=== PATIENT | male | born 1995 | race American Indian/Alaskan Native ===

== ENCOUNTER 2018-04-03 09:11 | Emergency (ER) | payer OTHER ==
[2018-04-03 09:23] VITALS: BP 120/77
--- NOTE | 2018-04-03 10:54 | Emergency Department Report ---
ED Palpitations HPI - General Chief Complaint: Arrhythmia/Palpitations Stated Complaint: HEART PALPITATIONS Time Seen by Provider: 04/03/18 10:38 Source: patient Mode of arrival: Ambulatory Limitations: No Limitations - History of Present Illness Initial Comments: Patient is a 23-year-old male who states that for the past 2 days he's feeling chest discomfort. Patient states that he's feeling of lump in his chest that occurs every 10-1520 minutes. Patient states it comes and goes very quickly. Patient states "it feels as though more heart drops very quickly and then it resolves". The patient denies any shortness of breath nausea vomiting diarrhea or persistent chest pain. Patient states that he does smoke marijuana but denies any other drug use or alcohol use. Patient states he does not use high amounts of caffeine. - Related Data Home Medications Medication Instructions Recorded Confirmed Last Taken No Known Home Medications [No 08/05/15 08/05/15 Unknown Reported Home Medications] Allergies Allergy/AdvReac Type Severity Reaction Status Date / Time No Known Allergies Allergy Verified 08/05/15 04:17 ED Review of Systems ROS: Stated complaint: HEART PALPITATIONS Other details as noted in HPI Comment: All other systems reviewed and negative ED Past Medical Hx - Past Medical History Previous Medical History?: Yes Hx GERD: Yes Additional medical history: severe constipation - Surgical History Past Surgical History?: No - Social History Smoking Status: Current Every Day Smoker Substance Use Type: Alcohol, Marijuana - Medications Home Medications: Home Medications Medication Instructions Recorded Confirmed Last Taken Type No Known Home Medications [No 08/05/15 08/05/15 Unknown History Reported Home Medications] ED Physical Exam - General Limitations: No Limitations General appearance: alert, in no apparent distress - Head Head exam: Present: atraumatic, normocephalic - Eye Eye exam: Present: normal appearance - ENT ENT exam: Present: mucous membranes moist - Neck Neck exam: Present: normal inspection - Respiratory Respiratory exam: Present: normal lung sounds bilaterally. Absent: respiratory distress - Cardiovascular Cardiovascular Exam: Present: regular rate, normal rhythm. Absent: systolic murmur, diastolic murmur, rubs, gallop - GI/Abdominal GI/Abdominal exam: Present: soft, normal bowel sounds - Rectal Rectal exam: Present: deferred - Extremities Exam Extremities exam: Present: normal inspection - Back Exam Back exam: Present: normal inspection - Neurological Exam Neurological exam: Present: alert, oriented X3 - Psychiatric Psychiatric exam: Present: normal affect, normal mood - Skin Skin exam: Present: warm, dry, intact, normal color. Absent: rash ED Course Vital Signs 04/03/18 09:19 Temperature 98.6 F Pulse Rate 52 L Respiratory 20 Rate Blood Pressure 120/77 O2 Sat by Pulse 99 Oximetry ED Medical Decision Making - EKG Data -: EKG Interpreted by [place] EKG shows normal: sinus rhythm, axis, intervals, QRS complexes, ST-T waves Rate: normal - EKG Data Interpretation: normal EKG - Radiology Data Chest x-ray shows no acute process - Medical Decision Making Patient will be discharged home at this time. Patient will have follow-up with cardiology for possible echo. Patient is told that he needs to refrain from extracurricular drug use alcohol. Critical care attestation.: If time is entered above; I have spent that time in minutes in the direct care of this critically ill patient, excluding procedure time. ED Disposition Clinical Impression: PVC (premature ventricular contraction) Disposition: DC-01 TO HOME OR SELFCARE Is pt being admited?: No Does the pt Need Aspirin: No Condition: Stable Instructions: Palpitations (ED), Premature Ventricular Contractions (ED) Referrals: KIRK LOPEZ MD [Staff Physician] - 3-5 Days
--- NOTE | 2018-04-03 11:40 | XRay Report ---
ROUTINE CHEST, TWO VIEWS: HISTORY: Chest discomfort. The trachea, heart, mediastinal contour, lung al and bony thorax are unremarkable. IMPRESSION: Unremarkable chest x-ray.
== END 2018-04-03 12:21 | disposition home or self-care (01) ==
LOC: ED 09:11
DX: I49.3 Ventricular premature depolarization (principal); K21.9 Gastro-esophageal reflux disease without esophagitis; K59.00 Constipation, unspecified; F17.200 Nicotine dependence, unspecified, uncomplicated; F12.10 Cannabis abuse, uncomplicated
CPT/HCPCS: 71046; 93005; 93010; 99284

== ENCOUNTER 2018-04-07 16:06 | Emergency (ER) | payer OTHER ==
[2018-04-07 16:14] VITALS: BP 110/61
[2018-04-07 17:00] LABS: Basophils # (Auto) 0.1 K/mm3 (0.0-0.1); Basophils % (Auto) 1.3 % (0.0-1.8); Eosinophils % (Auto) 0.9 % (0.0-4.3); Hematocrit 42.7 % (35.5-45.6); Hemoglobin 14.3 gm/dl (11.8-15.2); Lymphocytes # (Auto) 1.7 K/mm3 (1.2-5.4); Lymphocytes % (Auto) 40.6 % (13.4-35.0); Mean Corpuscular HGB Conc 34 % (32-34); Mean Corpuscular Hemoglobin 29 pg (28-32); Mean Corpuscular Volume 85 fl (84-94); Monocytes # (Auto) 0.5 K/mm3 (0.0-0.8); Monocytes % (Auto) 12.7 % (0.0-7.3); Red Blood Count 5.03 M/mm3 (3.65-5.03); Red Cell Distribution Width 13.7 % (13.2-15.2)
[2018-04-07 17:05] LABS: Bilirubin,Urine NEG (Negative); Blood,Urine NEG (Negative); Color,Urine Yellow (Yellow); Mucus,Urine FEW /HPF; Protein,Urine <15 mg/dL mg/dL (Negative); Urobilinogen,Urine < 2.0 mg/dL (<2.0)
[2018-04-07 17:06] LABS: RBC,Urine < 1.0 /HPF (0.0-6.0)
[2018-04-07 17:19] LABS: Alanine Aminotransferase 11 units/L (7-56); Albumin 4.3 g/dL (3.9-5); BUN/Creatinine Ratio 15; Blood Urea Nitrogen 12 mg/dL (9-20); Calcium 8.9 mg/dL (8.4-10.2); Hemolysis Index 26
[2018-04-07 17:35] LABS: Platelet Count 172 K/mm3 (140-440)
== END 2018-04-07 21:48 | disposition left against medical advice (07) ==
LOC: ED 16:06
DX: R10.9 Unspecified abdominal pain (principal); Z53.21 Procedure and treatment not carried out due to patient leaving prior to being seen by health care provider
CPT/HCPCS: 36415; 80053; 81001; 85025

== ENCOUNTER 2019-07-25 03:01 | Emergency (ER) | payer SELFPAY | END 2019-07-25 04:26 | disposition home or self-care (01) | LOC: ED 03:01 | DX: R30.9 Painful micturition, unspecified (principal); K21.9 Gastro-esophageal reflux disease without esophagitis ==

== ENCOUNTER 2019-07-25 05:03 | Emergency (ER) | payer SELFPAY ==
[2019-07-25 05:08] VITALS: BP 133/92
--- NOTE | 2019-07-25 06:27 | Emergency Department Report ---
ED Male HPI - General Chief complaint: Urogenital-Male Stated complaint: PENILE SWELLING/PAINFUL Time Seen by Provider: 07/25/19 06:20 Source: patient Mode of arrival: Ambulatory Limitations: No Limitations - History of Present Illness Initial comments: 24-year-old [facility] emergency department for repeat check on his penile swelling. He was seen earlier today and had a few more questions are returned. He reports no penile discharge. No dysuria, no hematuria, no hematemesis, no diarrhea no constipation, no abdominal pain noted testicular pain, no testicular swelling. He has not yet filled the medication and reports continued to swell -: Gradual, days(s) Location: penis Quality: dull Consistency: constant Improves with: none Worsens with: none denies: rash, urinary retention, fever, nausea/vomiting, incontinence - Related Data Previous Rx's Medication Instructions Recorded Last Taken Type Azithromycin [Zithromax Z-TANA] 250 mg PO QDAY #6 tablet 09/24/18 Unknown Rx Benzonatate [Tessalon Perle] 100 mg PO Q8H #15 capsule 09/24/18 Unknown Rx Clotrimazole/Betamethasone Dip 1 applicatio TP BID #30 cream..g. 07/25/19 Unknown Rx [Lotrisone Cream] Allergies Allergy/AdvReac Type Severity Reaction Status Date / Time No Known Allergies Allergy Verified 08/05/15 04:17 ED Review of Systems ROS: Stated complaint: PENILE SWELLING/PAINFUL Other details as noted in HPI Comment: All other systems reviewed and negative ED Past Medical Hx - Past Medical History Previous Medical History?: Yes Hx GERD: Yes Additional medical history: severe constipation - Surgical History Past Surgical History?: No - Social History Smoking Status: Current Every Day Smoker Substance Use Type: None - Medications Home Medications: Home Medications Medication Instructions Recorded Confirmed Last Taken Type Azithromycin [Zithromax Z-TANA] 250 mg PO QDAY #6 tablet 09/24/18 Unknown Rx Benzonatate [Tessalon Perle] 100 mg PO Q8H #15 capsule 09/24/18 Unknown Rx Clotrimazole/Betamethasone Dip 1 applicatio TP BID #30 cream..g. 07/25/19 Unknown Rx [Lotrisone Cream] ED Physical Exam - General Limitations: No Limitations General appearance: alert, in no apparent distress - Head Head exam: Present: atraumatic, normocephalic - Eye Eye exam: Present: normal appearance - ENT ENT exam: Present: mucous membranes moist - Neck Neck exam: Present: normal inspection - Respiratory Respiratory exam: Absent: respiratory distress - Cardiovascular Cardiovascular Exam: Present: regular rate, normal rhythm. Absent: systolic murmur, diastolic murmur, rubs, gallop - GI/Abdominal GI/Abdominal exam: Present: soft, normal bowel sounds. Absent: tenderness - Rectal Rectal exam: Present: deferred - exam: Absent: scrotal swelling, circumcision (no paraphimosis or phimosis present. There is some swelling to the foreskin. No broken skin. No penile lesions. No rash. No lymphadenopathy) - Extremities Exam Extremities exam: Present: normal inspection - Back Exam Back exam: Present: normal inspection - Neurological Exam Neurological exam: Present: alert, oriented X3 - Psychiatric Psychiatric exam: Present: normal affect, normal mood - Skin Skin exam: Present: warm, dry, intact, normal color. Absent: rash ED Course Vital Signs 07/25/19 05:06 Temperature 98.3 F Pulse Rate 53 L Respiratory 18 Rate Blood Pressure 133/92 O2 Sat by Pulse 99 Oximetry ED Medical Decision Making - Medical Decision Making ` Uncircumcised swelling noted. No discharge. Minimal discomfort. No lymphadenopathy discussed with Mr. Neal in great detail the use utilization of the medication and on the need to follow-up for recheck in one week. Does not actual abscess process present Critical care attestation.: If time is entered above; I have spent that time in minutes in the direct care of this critically ill patient, excluding procedure time. ED Disposition Clinical Impression: Posthitis Disposition: DC-01 TO HOME OR SELFCARE Is pt being admited?: No Does the pt Need Aspirin: No Condition: Stable Referrals: PRIMARY CARE, [Primary Care Provider] - 3-5 Days
== END 2019-07-25 06:24 | disposition home or self-care (01) ==
LOC: ED 05:03
DX: N47.7 Other inflammatory diseases of prepuce (principal); K21.9 Gastro-esophageal reflux disease without esophagitis; K59.00 Constipation, unspecified; F17.200 Nicotine dependence, unspecified, uncomplicated; Z79.899 Other long term (current) drug therapy

== ENCOUNTER 2020-01-24 02:56 | Emergency (ER) | payer OTHER ==
[2020-01-24 03:02] VITALS: BP 122/77
--- NOTE | 2020-01-24 04:26 | Emergency Department Report ---
Vomiting/Diarrhea - HPI Chief Complaint: Abdominal Pain Stated Complaint: POSSIBLE FOOD POISONING/STOMACH PAIN Time Seen by Provider: 01/24/20 03:40 Duration: 2 Days Severity: moderate Nausea/Vomiting Severity: Moderate Diarrhea Severity: Mild Pain Location: Generalized Pain Severity: Mild Symptoms: Yes Able to Tolerate Fluids, No Watery Diarrhea, No Bloody diarrhea, No Fever, No Recent Unusual Foods, No Recent Untreated Water, No Recent use of Antibiotics, No Family w/ Similar Symptoms, No Contacts w/ Similar Symptoms, No Rash, No Hematuria, No Recent URI Symptoms Other History: This is a 24-year-old male that presents to the emergency room with nausea, vomiting, diarrhea, and abdominal cramping for 2 days. Patient states symptoms initially started with intermittent diffuse abdominal cramping and then progressed to nausea and vomiting on yesterday. Patient states vomiting started after eating some [employer]. He is concerned of possible food poisoning. Past medical history of GERD. Patient denies recent travel. He denies tarry stools, urinary frequency, urgency, dysuria, back pain, fever, or chills. ED Review of Systems ROS: Stated complaint: POSSIBLE FOOD POISONING/STOMACH PAIN Other details as noted in HPI Constitutional: denies: chills, fever Respiratory: denies: cough, shortness of breath, wheezing Cardiovascular: denies: chest pain, palpitations Gastrointestinal: abdominal pain, nausea, vomiting. denies: diarrhea, constipation, hematemesis, melena, hematochezia Genitourinary: denies: urgency, dysuria Musculoskeletal: denies: back pain, joint swelling, arthralgia Skin: denies: rash, lesions Neurological: denies: headache, weakness, paresthesias Psychiatric: denies: anxiety, depression ED Past Medical Hx - Past Medical History Previous Medical History?: Yes Hx GERD: Yes Additional medical history: severe constipation - Surgical History Past Surgical History?: No - Social History Smoking Status: Current Every Day Smoker Substance Use Type: Marijuana - Medications Home Medications: Home Medications Medication Instructions Recorded Confirmed Last Taken Type Azithromycin [Zithromax Z-TANA] 250 mg PO QDAY #6 tablet 09/24/18 Unknown Rx Benzonatate [Tessalon Perle] 100 mg PO Q8H #15 capsule 09/24/18 Unknown Rx Clotrimazole/Betamethasone Dip 1 applicatio TP BID #30 cream..g. 07/25/19 Unkn own Rx [Lotrisone Cream] Ondansetron [Zofran Odt] 4 mg PO Q8HR PRN #20 tab.grupodis 01/24/20 Unknown Rx Vomiting Diarrhea Exam - Exam General: Vital signs noted. No distress. Alert and acting appropriately. HEENT: Yes Pharyngeal Erythema (Erythematous posterior pharynx, uvula midline), Yes Moist Mucous Membranes, No Pharyngeal Exudates, No Rhinorrhea, No Conjuctival Injection, No Frontal Tenderness, No Maxillary Tenderness Neck: No Adenopathy, No Rigidity Lungs: Yes Clear Lung Sounds, Yes Good Air Exchange, No Wheezes, No Stridor, No Cough, No Nasal Flaring, No Retractions, No Use of Accessory Muscles Heart exam: Regular: Yes, Murmur: No, Tachycardia: No Abdomen: Tenderness: No, Peritoneal Signs: No, Distention: No, Hyperactive Bowel sounds: No Skin exam: Rash: No, Edema: No, Normal turgor: Yes Neurologic: Alert and oriented, no deficits. Musculoskeletal: Unremarkable. ED Course Vital Signs 01/24/20 02:59 Temperature 98.1 F Pulse Rate 77 Respiratory 18 Rate Blood Pressure 122/77 O2 Sat by Pulse 97 Oximetry ED Medical Decision Making - Lab Data Result diagrams: 01/24/20 04:40 01/24/20 04:40 Lab Results 01/24/20 01/24/20 01/24/20 Range/Units 04:35 04:40 04:40 WBC 8.3 (4.5-11.0) K/mm3 RBC 5.61 H (3.65-5.03) M/mm3 Hgb 16.4 H (11.8-15.2) gm/dl Hct 47.8 H (35.5-45.6) % MCV 85 (84-94) fl MCH 29 (28-32) pg MCHC 34 (32-34) % RDW 13.6 (13.2-15.2) % Plt Count 175 (140-440) K/mm3 Lymph % (Auto) 4.4 L (13.4-35.0) % [place] % (Auto) 7.8 H (0.0-7.3) % Eos % (Auto) 0.3 (0.0-4.3) % Baso % (Auto) 0.3 (0.0-1.8) % Lymph # 0.4 L (1.2-5.4) K/mm3 [place] # 0.6 (0.0-0.8) K/mm3 Eos # 0.0 (0.0-0.4) K/mm3 Baso # 0.0 (0.0-0.1) K/mm3 Seg Neutrophils % 87.2 H (40.0-70.0) % Seg Neutrophils # 7.2 (1.8-7.7) K/mm3 Sodium 142 (137-145) mmol/L Potassium 4.2 (3.6-5.0) mmol/L Chloride 102.2 (98-107) mmol/L Carbon Dioxide 26 (22-30) mmol/L Anion Gap 18 mmol/L BUN 12 (9-20) mg/dL Creatinine 0.9 (0.8-1.5) mg/dL Estimated GFR > 60 ml/min BUN/Creatinine Ratio 13 % Glucose 113 H (75-100) mg/dL Calcium 9.5 (8.4-10.2) mg/dL Total Bilirubin 0.50 (0.1-1.2) mg/dL AST 23 (5-40) units/L ALT 15 (7-56) units/L Alkaline Phosphatase 88 (35-129) units/L Total Protein 8.0 (6.3-8.2) g/dL Albumin 4.7 (3.9-5) g/dL Albumin/Globulin Ratio 1.4 % Urine Color Yellow (Yellow) Urine Turbidity Clear (Clear) Urine pH 6.0 (5.0-7.0) Ur Specific [place] 1.016 (1.003-1.030) Urine Protein <15 mg/dl (Negative) mg/dL Urine Glucose (UA) Neg (Negative) mg/dL Urine Ketones 20 (Negative) mg/dL Urine Blood Neg (Negative) Urine Nitrite Neg (Negative) Urine Bilirubin Neg (Negative) Urine Urobilinogen < 2.0 (<2.0) mg/dL Ur Leukocyte Esterase Neg (Negative) Urine WBC (Auto) 1.0 (0.0-6.0) /HPF Urine RBC (Auto) 2.0 (0.0-6.0) /HPF Urine Mucus Few /HPF - Medical Decision Making This is a 24-year-old male that presents with nausea, vomiting, and diarrhea for 2 days. Past medical history of GERD. Vitals stable. Obtained CMP, CBC, & UA. Mild dehydration. Abdominal exam without peritoneal signs. Currently no signs of dehydration. No signs of surgical abdomen other acute medical emergencies including bowel obstruction, appendicitis, and acute cholecystitis. Patient's presentation is not consistent with any other acute emergent causes of vomiting and diarrhea. Imaging deferred at this time. Given IV fluids and Pepcid. Symptoms are susceptible of gastroenteritis. Start Zofran. Discussed plan with patient and agreed to plan. No further questions noted by the patient. Discha rged home in stable condition. Follow up with PCP in 2-3 days. Critical care attestation.: If time is entered above; I have spent that time in minutes in the direct care of this critically ill patient, excluding procedure time. ED Disposition Clinical Impression: Nausea, vomiting, and diarrhea, Gastroenteritis, Dehydration, mild Disposition: DC-01 TO HOME OR SELFCARE Is pt being admited?: No Condition: Stable Instructions: Acute Nausea and Vomiting (ED), Gastroenteritis (ED) Additional Instructions: Frequent hand washing is important to reduce spread. Prompt disinfection of contaminated surfaces with household chlorine bleach- based aba therapist and washing of soiled clothing and bedding should be advised. If food or water is thought to be contaminated, it should be avoided. Start taking [id number] Imodium for diarrhea as directed on the box. Increase fluid intake. Drinks high in sugars such as carbonated soft drinks, fruit juice, and highly sugared liquids should be avoided. Prescriptions: Ondansetron [Zofran Odt] 4 mg PO Q8HR PRN #20 tab.rapdis PRN Reason: Nausea And Vomiting Referrals: [facility] [Outside] - 3-5 Days [facility] [Outside] - 3-5 Days [facility] [Outside] - 3-5 Days Forms: Work/School Release Form(ED), Accompanied Note Time of Disposition: 05:31
[2020-01-24 04:42] LABS: Bilirubin,Urine NEG (Negative); Blood,Urine NEG (Negative); Color,Urine Yellow (Yellow); Mucus,Urine FEW /HPF; Protein,Urine <15 mg/dL mg/dL (Negative); Urobilinogen,Urine < 2.0 mg/dL (<2.0)
[2020-01-24 04:55] LABS: Basophils % (Auto) 0.3 % (0.0-1.8); Eosinophils % (Auto) 0.3 % (0.0-4.3); Hematocrit 47.8 % (35.5-45.6); Hemoglobin 16.4 gm/dl (11.8-15.2); Lymphocytes # (Auto) 0.4 K/mm3 (1.2-5.4); Lymphocytes % (Auto) 4.4 % (13.4-35.0); Mean Corpuscular HGB Conc 34 % (32-34); Mean Corpuscular Volume 85 fl (84-94); Monocytes # (Auto) 0.6 K/mm3 (0.0-0.8); Monocytes % (Auto) 7.8 % (0.0-7.3); Platelet Count 175 K/mm3 (140-440); Red Blood Count 5.61 M/mm3 (3.65-5.03); Red Cell Distribution Width 13.6 % (13.2-15.2)
[2020-01-24] MEDS ORDERED: SODIUM CHLORIDE 0.9% 1000 ML 1,000 ML IV ONE (04:56)
[2020-01-24] MEDS ORDERED: FAMOTIDINE 20 MG/2 ML INJ IV ONE (04:56)
[2020-01-24 05:18] LABS: Alanine Aminotransferase 15 units/L (7-56); Albumin 4.7 g/dL (3.9-5); BUN/Creatinine Ratio 13; Blood Urea Nitrogen 12 mg/dL (9-20); Calcium 9.5 mg/dL (8.4-10.2); Hemolysis Index 3
== END 2020-01-24 05:45 | disposition home or self-care (01) ==
LOC: ED 02:56
DX: K52.9 Noninfective gastroenteritis and colitis, unspecified (principal); E86.0 Dehydration; R11.2 Nausea with vomiting, unspecified; K21.9 Gastro-esophageal reflux disease without esophagitis; F17.200 Nicotine dependence, unspecified, uncomplicated; F12.90 Cannabis use, unspecified, uncomplicated; Z79.899 Other long term (current) drug therapy
CPT/HCPCS: 36415; 80053; 81001; 85025; 96361; 96374; 99283; J7030

== ENCOUNTER 2021-07-05 13:02 | Emergency (ER) | payer SELFPAY ==
[2021-07-05 13:29] VITALS: BP 138/80
--- NOTE | 2021-07-05 14:18 | XRay Report ---
CHEST 2 VIEWS INDICATION / CLINICAL INFORMATION: Chest Pain. COMPARISON: Chest x-ray 11/24/2018 FINDINGS: SUPPORT DEVICES: None. HEART / MEDIASTINUM: No significant abnormality. LUNGS / PLEURA: No significant pulmonary or pleural abnormality. No pneumothorax. ADDITIONAL FINDINGS: No significant additional findings. IMPRESSION: 1. No acute findings. Signer Name: Len Maki MD Signed: 07/05/2021 2:14 PM Workstation Name: [id number]
[2021-07-05 14:27] LABS: Basophils % (Auto) 0.6 % (0.0-1.8); Eosinophils % (Auto) 0.7 % (0.0-4.3); Hematocrit 44.9 % (35.5-45.6); Hemoglobin 15.7 gm/dl (11.8-15.2); Lymphocytes # (Auto) 1.8 K/mm3 (1.2-5.4); Lymphocytes % (Auto) 29.3 % (13.4-35.0); Mean Corpuscular HGB Conc 35 % (32-34); Mean Corpuscular Volume 86 fl (84-94); Monocytes # (Auto) 0.8 K/mm3 (0.0-0.8); Monocytes % (Auto) 12.7 % (0.0-7.3); Platelet Count 189 K/mm3 (140-440); Red Blood Count 5.19 M/mm3 (3.65-5.03); Red Cell Distribution Width 13.6 % (13.2-15.2)
[2021-07-05 14:37] LABS: INR 0.97 (0.87-1.13)
[2021-07-05 14:38] LABS: Partial Thromboplastin Time 30.3 Sec. (24.2-36.6)
[2021-07-05 14:48] LABS: Alanine Aminotransferase 19 units/L (7-56); Albumin 4.6 g/dL (3.9-5); BUN/Creatinine Ratio 12; Blood Urea Nitrogen 11 mg/dL (9-20); Calcium 9.4 mg/dL (8.4-10.2); Hemolysis Index 25
--- NOTE | 2021-07-05 16:22 | Emergency Department Report ---
ED Palpitations HPI - General Chief Complaint: Arrhythmia/Palpitations Stated Complaint: HEART PALPATATIONS Time Seen by Provider: 07/05/21 13:38 Source: patient Mode of arrival: Ambulatory Limitations: No Limitations - History of Present Illness Initial Comments: This is a 26-year-old male nontoxic, well nourished in appearance, no acute signs of distress presents to the ED with c/o of intermittent " heart fluttering sensation" times several days. Patient otherwise denies any chest pain. Patient currently denies any symptoms. Patient denies any upper respiratory symptoms. Patient denies any shortness of breath, hemoptysis, fever, chills, nausea, vomiting, headache, stiff neck, numbness, tingling, abdominal pain. Patient denies pleuritic chest pain. Patient denies any recent travels or long car rides. Patient denies any recent surgeries or any sick contacts. Patient denies any drug allergies or significant past medical history. Denies drinking any alcohol, drug consumption or energy drinks. Patient stated symptoms occurs during anxiety episodes. MD Complaint: irregular heart beat -: days(s) Associated Symptoms: denies other symptoms. denies: chest pain, shortness of breath, syncope, near-syncope, nausea/vomiting, anxiety, diaphoresis, cough, parasthesias, feeling of impending doom, muscle cramps - Related Data Previous Rx's Medication Instructions Recorded Last Taken Type Azithromycin [Zithromax Z-TANA] 250 mg PO QDAY #6 tablet 09/24/18 Unknown Rx Benzonatate [Tessalon Perle] 100 mg PO Q8H #15 capsule 09/24/18 Unknown Rx Clotrimazole/Betamethasone Dip 1 applicatio TP BID #30 cream..g. 07/25/19 Unknown Rx [Lotrisone Cream] Ondansetron [Zofran Odt] 4 mg PO Q8HR PRN #20 tab.rapdis 01/24/20 Unknown Rx Allergies Allergy/AdvReac Type Severity Reaction Status Date / Time No Known Allergies Allergy Verified 08/05/15 04:17 ED Review of Systems ROS: Stated complaint: HEART PALPATATIONS Other details as noted in HPI Comment: All other systems reviewed and negative Constitutional: denies: chills, fever Eyes: denies: eye pain, eye discharge, vision change ENT: denies: ear pain, throat pain Respiratory: denies: cough, shortness of breath, wheezing Cardiovascular: denies: chest pain, palpitations, dyspnea on exertion, orthopnea, edema, syncope, paroxysmal nocturnal dyspnea Endocrine: no symptoms reported Gastrointestinal: denies: abdominal pain, nausea, diarrhea Genitourinary: denies: urgency, dysuria Musculoskeletal: denies: back pain, joint swelling, arthralgia Skin: denies: rash, lesions Neurological: denies: headache, weakness, paresthesias Psychiatric: denies: anxiety, depression Hematological/Lymphatic: denies: easy bleeding, easy bruising ED Past Medical Hx - Past Medical History Previous Medical History?: Yes Hx GERD: Yes Additional medical history: severe constipation - Social History Smoking Status: Current Every Day Smoker Substance Use Type: Marijuana - Medications Home Medications: Home Medications Medication Instructions Recorded Confirmed Last Taken Type Azithromycin [Zithromax Z-TANA] 250 mg PO QDAY #6 tablet 09/24/18 Unknown Rx Benzonatate [Tessalon Perle] 100 mg PO Q8H #15 capsule 09/24/18 Unknown Rx Clotrimazole/Betamethasone Dip 1 applicatio TP BID #30 cream..g. 07/25/19 Unknown Rx [Lotrisone Cream] Ondansetron [Zofran Odt] 4 mg PO Q8HR PRN #20 tab.rapdis 01/24/20 Unknown Rx ED Physical Exam - General Limitations: No Limitations General appearance: alert, in no apparent distress - Head Head exam: Present: atraumatic, normocephalic - Eye Eye exam: Present: normal appearance - Neck Neck exam: Present: normal inspection, full ROM. Absent: lymphadenopathy - Respiratory Respiratory exam: Present: normal lung sounds bilaterally. Absent: respiratory distress, wheezes, rales, rhonchi, stridor, chest wall tenderness, accessory muscle use, decreased breath sounds, prolonged expiratory - Cardiovascular Cardiovascular Exam: Present: regular rate, normal rhythm, normal heart sounds. Absent: bradycardia, tachycardia, irregular rhythm, systolic murmur, diastolic murmur, rubs, gallop - GI/Abdominal GI/Abdominal exam: Present: soft, normal bowel sounds. Absent: distended, tenderness, guarding, rebound, rigid, diminished bowel sounds - Extremities Exam Extremities exam: Present: normal inspection, full ROM - Back Exam Back exam: Present: normal inspection, full ROM. Absent: tenderness, CVA tenderness (R), CVA tenderness (L), muscle spasm, paraspinal tenderness, vertebral tenderness, rash noted - Neurological Exam Neurological exam: Present: alert, oriented X3, normal gait - Psychiatric Psychiatric exam: Present: normal affect, normal mood - Skin Skin exam: Present: warm, dry, intact, normal color. Absent: rash ED Course Vital Signs 07/05/21 13:28 Temperature 98 F Pulse Rate 61 Respiratory 16 Rate Blood Pressure 138/80 [Right] O2 Sat by Pulse 100 Oximetry - Reevaluation(s) Reevaluation #1: 07/05/21 16:27 Patient is speaking in full sentences with no signs of distress noted. ED Medical Decision Making - Lab Data Result diagrams: 07/05/21 13:41 07/05/21 13:41 Lab Results 07/05/21 07/05/21 07/05/21 Range/Units 13:41 13:41 13:41 WBC 6.0 (4.5-11.0) K/mm3 RBC 5.19 H (3.65-5.03) M/mm3 Hgb 15.7 H (11.8-15.2) gm/dl Hct 44.9 (35.5-45.6) % MCV 86 (84-94) fl MCH 30 (28-32) pg MCHC 35 H (32-34) % RDW 13.6 (13.2-15.2) % Plt Count 189 (140-440) K/mm3 Lymph % (Auto) 29.3 (13.4-35.0) % [place] % (Auto) 12.7 H (0.0-7.3) % Eos % (Auto) 0.7 (0.0-4.3) % Baso % (Auto) 0.6 (0.0-1.8) % Lymph # (Auto) 1.8 (1.2-5.4) K/mm3 [place] # (Auto) 0.8 (0.0-0.8) K/mm3 Eos # (Auto) 0.0 (0.0-0.4) K/mm3 Baso # (Auto) 0.0 (0.0-0.1) K/mm3 Seg Neutrophils % 56.7 (40.0-70.0) % Seg Neutrophils # 3.4 (1.8-7.7) K/mm3 PT 13.4 (12.2-14.9) Sec. INR 0.97 (0.87-1.13) APTT 30.3 (24.2-36.6) Sec. Sodium 138 (137-145) mmol/L Potassium 4.0 (3.6-5.0) mmol/L Chloride 99.6 (98-107) mmol/L Carbon Dioxide 28 (22-30) mmol/L Anion Gap 14 mmol/L BUN 11 (9-20) mg/dL Creatinine 0.9 (0.8-1.3) mg/dL Estimated GFR > 60 ml/min BUN/Creatinine Ratio 12 % Glucose 88 (75-100) mg/dL Calcium 9.4 (8.4-10.2) mg/dL Magnesium 1.80 (1.7-2.3) mg/dL Total Bilirubin 0.60 (0.1-1.2) mg/dL AST 26 (5-40) units/L ALT 19 (7-56) units/L Alkaline Phosphatase 99 (35-129) units/L Troponin T < 0.010 (0.00-0.029) ng/mL Total Protein 7.9 (6.3-8.2) g/dL Albumin 4.6 (3.9-5) g/dL Albumin/Globulin Ratio 1.4 % - Radiology Data [facility] [address] [place] [address] XRay Report Signed Patient: LINNEA WEEKS MR#: [id number] : 1995 Acct:[id number] Age/Sex: 26 / M ADM Date: 07/05/21 Loc: ED Attending Dr: Ordering Physician: ROD MARCUM NP Date of Service: 07/05/21 Procedure(s): XR chest routine 2V Accession Number(s): [id number] cc: ROD MARCUM NP Fluoro Time In Minutes: CHEST 2 VIEWS INDICATION / CLINICAL INFORMATION: Chest Pain. COMPARISON: Chest x-ray 11/24/2018 FINDINGS: SUPPORT DEVICES: None. HEART / MEDIASTINUM: No significant abnormality. LUNGS / PLEURA: No significant pulmonary or pleural abnormality. No pneumothorax. ADDITIONAL FINDINGS: No significant additional findings. IMPRESSION: 1. No acute findings. Signer Name: Len Maki MD Signed: 07/05/2021 2:14 PM Workstation Name: [id number] Transcribed By: TL Dictated By: Len Maki MD Electronically Authenticated By: Len Maki MD Signed Date/Time: 07/05/211413 DD/ 13 TD/TT: - Medical Decision Making 26-year-old male that presents with cardiac fluttering sensation. Patient is stable and was examined by me. Labs has been obtained. Imaging has been obtained. Initial EKG has been reviewed within normal limits. A repeat troponin and EKG is pending but patient was not in the waiting room after being called several times. As per Zenia RN, try to reach patient at a phone number listed but patient did not answer. Patient left AGAINST MEDICAL ADVICE without telling anybody. I was not able to reassess the patient, perform a full physical assessment, and repeat diagnostic testing for further evaluation and treatment. Critical care attestation.: If time is entered above; I have spent that time in minutes in the direct care of this critically ill patient, excluding procedure time. ED Disposition Clinical Impression: Fluttering sensation of heart Disposition: DC-07 LEFT AGAINST MED ADVICE Is pt being admited?: No Condition: Undetermined
--- NOTE | 2021-07-06 14:31 | Electrocardiograph Report ---
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
== END 2021-07-05 15:41 | disposition left against medical advice (07) ==
LOC: ED 13:02
DX: I49.8 Other specified cardiac arrhythmias (principal); K21.9 Gastro-esophageal reflux disease without esophagitis; F17.200 Nicotine dependence, unspecified, uncomplicated; F12.10 Cannabis abuse, uncomplicated
CPT/HCPCS: 36415; 71046; 80053; 83735; 84484; 85025; 85610; 85730; 93005; 99283

== ENCOUNTER 2021-07-05 17:32 | Emergency (ER) | payer SELFPAY ==
[2021-07-05 22:34] VITALS: BP 153/94
--- NOTE | 2021-07-05 22:45 | Emergency Department Report ---
ED General Adult HPI - General Chief complaint: Arrhythmia/Palpitations Stated complaint: HEART PALPATATIONS Time Seen by Provider: 07/05/21 22:26 Source: patient Mode of arrival: Ambulatory Limitations: No Limitations - History of Present Illness Initial comments: 26-year-old male patient presents to the emergency department with complaints of palpitations for 2 days. Patient states he feels "his heart racing hard about every 30 seconds." No history of similar symptoms. No recent changes in patient's caffeine/sugar intake. Patient endorses marijuana use. No cocaine use or other illicit drugs. No prescription drug abuse reported. No history of similar symptoms. No family history of cardiac arrhythmia or sudden cardiac . Denies fever, chills, chest pain, shortness of breath, syncope, dizziness, lightheadedness, weakness, lower extremity pain/swelling. Denies all other complaints at this time. - Related Data Previous Rx's Medication Instructions Recorded Last Taken Type Azithromycin [Zithromax Z-TANA] 250 mg PO QDAY #6 tablet 09/24/18 Unknown Rx Benzonatate [Tessalon Perle] 100 mg PO Q8H #15 capsule 09/24/18 Unknown Rx Clotrimazole/Betamethasone Dip 1 applicatio TP BID #30 cream..g. 07/25/19 Unknown Rx [Lotrisone Cream] Ondansetron [Zofran Odt] 4 mg PO Q8HR PRN #20 tab.rapdis 01/24/20 Unknown Rx propranoloL [Inderal] 10 mg PO BID 10 Days tablet 07/05/21 Unknown Rx Allergies Allergy/AdvReac Type Severity Reaction Status Date / Time No Known Allergies Allergy Verified 08/05/15 04:17 ED Review of Systems ROS: Stated complaint: HEART PALPATATIONS Other details as noted in HPI Other: GENERAL: Negative for fever, chills, weight change, anorexia, fatigue. ENT: Negative for ear pain, difficulty hearing, sore throat, nasal congestion, epistaxis. CARDIOVASCULAR: Positive for palpitations. PULMONARY: Negative for cough, dyspnea, wheezing, orthopnea, cyanosis. GASTROINTESTINAL: Negative for abdominal pain, nausea, vomiting, diarrhea, constipation. MUSCULOSKELETAL: Negative for joint pain, joint swelling, myalgias, back pain, neck pain. NEUROLOGICAL: Negative for headache, seizure, syncope, paresthesias, weakness. INTEGUMENTARY: Negative for erythema, rash, diaphoresis, laceration, ecchymosis. HEMATOLOGICAL: Negative for hemoptysis, hematemesis, hematochezia, hematuria. PSYCHIATRIC: Negative for hallucinations, suicidal ideation, homicidal ideation, anxiety, depression. ED Past Medical Hx - Past Medical History Previous Medical History?: No Hx GERD: Yes Additional medical history: severe constipation - Surgical History Past Surgical History?: No - Social History Smoking Status: Current Every Day Smoker Substance Use Type: Marijuana - Medications Home Medications: Home Medications Medication Instructions Recorded Confirmed Last Taken Type Azithromycin [Zithromax Z-TANA] 250 mg PO QDAY #6 tablet 09/24/18 Unknown Rx Benzonatate [Tessalon Perle] 100 mg PO Q8H #15 capsule 09/24/18 Unknown Rx Clotrimazole/Betamethasone Dip 1 applicatio TP BID #30 cream..g. 07/25/19 Unknown Rx [Lotrisone Cream] Ondansetron [Zofran Odt] 4 mg PO Q8HR PRN #20 tab.rapdis 01/24/20 Unknown Rx propranoloL [Inderal] 10 mg PO BID 10 Days tablet 07/05/21 Unknown Rx ED Physical Exam - General Limitations: No Limitations - Other Other exam information: General: Awake and alert. No acute distress. Head: Atraumatic, normocephalic. Eyes: EOMI. Pupils are equal and round. Normal sclera and conjunctiva. ENT: Oral mucosa is moist. Normal pharyngeal exam. Neck: Supple. No lymphadenopathy. Pulmonary: No respiratory distress. Clear to auscultation bilaterally. Cardiac: Regular rate and rhythm. Pulses are palpable and equal bilaterally. No lower extremity cyanosis or edema. Skin: Warm and dry. No rashes. Abdomen: Soft, non-tender, non-protuberant. No guarding, rigidity, or rebound. Bowel sounds are normal. No organomegaly or masses noted. Back: Normal alignment. No CVA tenderness. Extremities: Symmetrical. Full range of motion intact. Neurological: Alert and oriented, appropriately interactive, no focal deficits. Psych: Cooperative. Appropriate mood and affect. Speech is evenly metered. Thoughts are logically construed. ED Course Vital Signs 07/05/21 07/05/21 22:33 22:50 Temperature 98.7 F Pulse Rate 68 65 Respiratory 16 17 Rate Blood Pressure 153/94 [Left] O2 Sat by Pulse 100 99 Oximetry ED Medical Decision Making - EKG Data 07/05/21 22:42 EKG shows normal sinus rhythm with a ventricular rate of 62 bpm. Normal axis. Normal SD interval. Normal QT interval. Multiple PVCs. No ST segment changes. Over read by attending emergency physician, who agrees with this interpretation. - Medical Decision Making Differential diagnosis including but not limited to: acute coronary syndrome, cardiac arrhythmia, pericarditis, pericardial effusion/cardiac tamponade, pulmonary embolism, toxic ingestion, valvular disease, myocarditis Patient presented to the emergency department earlier today for evaluation of palpitations. He underwent EKG, chest x-ray, and laboratory evaluation. Sunny llanes reportedly eloped from the emergency department prior to receiving his results. By the time he returned to the emergency department, the record from his patient encounter had already been signed, and he was instructed to check in a second time to receive his results from the first visit. Please review earlier ED documentation from 07/05/21 for further details. On repeat evaluation, patient states his symptoms are unchanged. An EKG was repeated, which showed multiple PVCs. Remainder of diagnostic work-up from earlier visit within normal limits. No clinical indication for repeat diagnostic work-up in the absence of worsening symptoms and/or evolution of symptoms. Patient will be started on a low-dose of Propanolol and referred to beverage sales consultant for close outpatient follow- up. Emphasized the importance of refraining from consumption of caffeine, sugar, energy drinks, etc. until otherwise instructed by beverage sales consultant. Patient has also been advised to refrain from sports and strenuous physical activity until otherwise instructed by beverage sales consultant. Patient expressed understanding and is agreeable to plan of care. Marijuana cessation discussed. Strict return precautions provided. Repeat exam is unremarkable and benign. History, exam, diagnostic testing, and current condition do not suggest worrisome pathology to warrant further testing, continued ED treatment, admission, or surgical evaluation at this point. Given the low probability of a significant medical illness, it would be more likely to result in harm than benefit to perform further testing at this stage. Discussed findings, presumptive diagnosis, need for follow-up and specific signs/symptoms that should prompt immediate return to the emergency department. Instructions were explained in detail to the patient in addition to giving written discharge information. Patient expressed understanding and was given the opportunity to ask questions, all of which were satisfactorily answered prior to discharge home. Critical care attestation.: If time is entered above; I have spent that time in minutes in the direct care of this critically ill patient, excluding procedure time. ED Disposition Clinical Impression: PVCs (premature ventricular contractions) Disposition: TO HOME OR SELFCARE Is pt being admited?: No Does the pt Need Aspirin: No Condition: Stable Instructions: Premature Ventricular Contraction Additional Instructions: Take Propanolol as directed. Reduce your dietary caffeine/sugar intake. Stay well-hydrated. Please refrain from using illicit drugs, including marijuana. Follow-up with beverage sales consultant this week. Call tomorrow to schedule an appointment. See referral information below. Please refrain from participating in sports/strenuous physical activity until otherwise instructed by beverage sales consultant. Return to the emergency department immediately for new or worsening symptoms. Specifically, return to the emergency department immediately for chest pain, difficulty breathing, worsening palpitations, loss of consciousness, dizziness, lightheadedness, or any other concerns. Prescriptions: propranoloL [Inderal] 10 mg PO BID 10 Days tablet Referrals: MARICARMEN MURRAY MD [Staff Physician] - 3-5 Days [facility] [Provider Group] - 3-5 Days Time of Disposition: 22:45
--- NOTE | 2021-07-06 14:33 | Electrocardiograph Report ---
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
== END 2021-07-05 22:50 | disposition home or self-care (01) ==
LOC: ED 17:32
DX: I49.3 Ventricular premature depolarization (principal); K21.9 Gastro-esophageal reflux disease without esophagitis; F17.200 Nicotine dependence, unspecified, uncomplicated; F12.10 Cannabis abuse, uncomplicated
CPT/HCPCS: 93005; 99282

== ENCOUNTER 2021-07-26 10:22 | Emergency (ER) | payer OTHER ==
[2021-07-26 10:43] VITALS: BP 148/82
--- NOTE | 2021-07-26 11:30 | XRay Report ---
CHEST 2 VIEWS INDICATION / CLINICAL INFORMATION: heart arrhythmia. COMPARISON: 07/05/21 FINDINGS: SUPPORT DEVICES: None. HEART / MEDIASTINUM: No significant abnormality. LUNGS / PLEURA: No significant pulmonary or pleural abnormality. No pneumothorax. ADDITIONAL FINDINGS: No significant additional findings. IMPRESSION: 1. No acute findings. No change. Signer Name: Adriano Schneider MD Signed: 07/26/2021 11:26 AM Workstation Name: [id number]
--- NOTE | 2021-07-26 12:06 | Emergency Department Report ---
ED General Adult HPI - General Chief complaint: Arrhythmia/Palpitations Stated complaint: PVCS/SOB/FATIQUE Source: patient Mode of arrival: Ambulatory Limitations: No Limitations - History of Present Illness Initial comments: 26-year-old -[place] male presents to the emergency room complaining of shortness of breath and fatigue for the last 2 days. Patient was seen here for 2 weeks ago for heart palpitations and was diagnosed with PVCs and placed on a beta-kajal. Patient reports he never followed up with a oncology admin. Patient denies any chest pain no shortness of breath at this time. Patient states he completed the propanolol that was given to him on 07/05/2021. Onset/Timin -: days(s) Consistency: intermittent Improves with: none Worsens with: none Associated Symptoms: shortness of breath (Intermittent). denies: chest pain, cough, diaphoresis, fever/chills, loss of appetite, nausea/vomiting, weakness Treatments Prior to Arrival: none - Related Data Previous Rx's Medication Instructions Recorded Last Taken Type Azithromycin [Zithromax Z-TANA] 250 mg PO QDAY #6 tablet 09/24/18 Unknown Rx Benzonatate [Tessalon Perle] 100 mg PO Q8H #15 capsule 09/24/18 Unknown Rx Clotrimazole/Betamethasone Dip 1 applicatio TP BID #30 cream..g. 07/25/19 Unknown Rx [Lotrisone Cream] Ondansetron [Zofran Odt] 4 mg PO Q8HR PRN #20 tab.rapdis 01/24/20 Unknown Rx propranoloL [Inderal] 10 mg PO BID 10 Days tablet 07/05/21 Unknown Rx Allergies Allergy/AdvReac Type Severity Reaction Status Date / Time No Known Allergies Allergy Verified 08/05/15 04:17 ED Review of Systems ROS: Stated complaint: PVCS/SOB/FATIQUE Other details as noted in HPI Comment: All other systems reviewed and negative ED Past Medical Hx - Past Medical History Previous Medical History?: Yes Hx GERD: Yes Additional medical history: severe constipation, heart irregular and PVCs - Surgical History Past Surgical History?: No - Social History Smoking Status: Current Every Day Smoker Substance Use Type: Marijuana - Medications Home Medications: Home Medications Medication Instructions Recorded Confirmed Last Taken Type Azithromycin [Zithromax Z-TANA] 250 mg PO QDAY #6 tablet 09/24/18 Unknown Rx Benzonatate [Tessalon Perle] 100 mg PO Q8H #15 capsule 09/24/18 Unknown Rx Clotrimazole/Betamethasone Dip 1 applicatio TP BID #30 cream..g. 07/25/19 Unknown Rx [Lotrisone Cream] Ondansetron [Zofran Odt] 4 mg PO Q8HR PRN #20 tab.rapdis 01/24/20 Unknown Rx propranoloL [Inderal] 10 mg PO BID 10 Days tablet 07/05/21 Unknown Rx ED Physical Exam - General Limitations: No Limitations General appearance: alert, in no apparent distress - Head Head exam: Present: atraumatic, normocephalic - Eye Eye exam: Present: normal appearance - ENT ENT exam: Present: mucous membranes moist - Neck Neck exam: Present: normal inspection - Respiratory Respiratory exam: Present: normal lung sounds bilaterally. Absent: respiratory distress - Cardiovascular Cardiovascular Exam: Present: regular rate, normal rhythm. Absent: normal heart sounds, systolic murmur, diastolic murmur, rubs, gallop - GI/Abdominal GI/Abdominal exam: Present: soft, normal bowel sounds - Rectal Rectal exam: Present: deferred - Extremities Exam Extremities exam: Present: normal inspection, full ROM. Absent: pedal edema - Back Exam Back exam: Present: normal inspection - Neurological Exam Neurological exam: Present: alert, oriented X3, normal gait - Psychiatric Psychiatric exam: Present: normal affect, normal mood. Absent: depressed, agitated - Skin Skin exam: Present: warm, dry, intact, normal color. Absent: rash ED Course Vital Signs 07/26/21 10:40 Temperature 98.7 F Pulse Rate 69 Respiratory 17 Rate Blood Pressure 148/82 O2 Sat by Pulse 100 Oximetry ED Medical Decision Making - Radiology Data Radiology results: report reviewed [facility] [address] [place] [address] XRay Report Signed Patient: LINNEA WEEKS MR#: [id number] : 1995 Acct:[id number] Age/Sex: 26 / M ADM Date: 07/26/21 Loc: ED Attending Dr: Ordering Physician: CHINTAN BOO MD Date of Service: 07/26/21 Procedure(s): XR chest routine 2V Accession Number(s): [id number] cc: ED DOC, Fluoro Time In Minutes: CHEST 2 VIEWS INDICATION / CLINICAL INFORMATION: heart arrhythmia. COMPARISON: 07/05/21 FINDINGS: SUPPORT DEVICES: None. HEART / MEDIASTINUM: No significant abnormality. LUNGS / PLEURA: No significant pulmonary or pleural abnormality. No pneumothorax. ADDITIONAL FINDINGS: No significant additional findings. IMPRESSION: 1. No acute findings. No change. Signer Name: Adriano Schneider MD Signed: 07/26/2021 11:26 AM Workstation Name: [id number] Transcribed By: DT Dictated By: Dimitry Schneider MD Electronically Authenticated By: Dimitry Schneider MD Signed Date/Time: 07/26/21 1126 DD/ 1125 TD/TT: Print Cancel - Medical Decision Making 26-year-old -[place] male presents to the emergency room complaining of shortness of breath and fatigue for the last 2 days. Patient was seen here for 2 weeks ago for heart palpitations and was diagnosed with PVCs and placed on a beta-kajal. Patient reports he never followed up with a oncology admin. Patient denies any chest pain no shortness of breath at this time. Patient states he completed the propanolol that was given to him on 07/05/2021. Chest x-ray shows no acute abnormalities EKG is stable no concerns for OH. Discussed with patient he needs to follow-up with a oncology admin. Critical care attestation.: If time is entered above; I have spent that time in minutes in the direct care of this critically ill patient, excluding procedure time. ED Disposition Clinical Impression: Fatigue, Shortness of breath, PVC (premature ventricular contraction) Disposition: 01 HOME / SELF CARE / HOMELESS Is pt being admited?: No Does the pt Need Aspirin: No Condition: Stable Additional Instructions: Follow-up with a oncology admin as we have instructed. Referrals: [facility] [Provider Group] - 3-5 Days Forms: Work/School Release Form(ED) Time of Disposition: 12:08
--- NOTE | 2021-07-28 08:54 | Electrocardiograph Report ---
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
== END 2021-07-26 12:29 | disposition home or self-care (01) ==
LOC: ED 10:22
DX: I49.3 Ventricular premature depolarization (principal); R53.83 Other fatigue; R06.02 Shortness of breath; K21.9 Gastro-esophageal reflux disease without esophagitis; F17.200 Nicotine dependence, unspecified, uncomplicated; F12.90 Cannabis use, unspecified, uncomplicated; Z79.899 Other long term (current) drug therapy
CPT/HCPCS: 71046; 93005; 99283